=== PATIENT | female | born 1950 | race Caucasian/White ===

== ENCOUNTER → 2017-11-29 | Outpatient (CLI) | payer MEDICARE, OTHER ==
--- NOTE | 2017-11-29 16:29 | CT ---
EXAMINATION TYPE: CT abdomen pelvis wo con DATE OF EXAM: 11/29/2017 HISTORY: bladder pain per patient. Hematuria and pelvic pain per order. CT DLP: 895.9 mGycm. Automated Exposure Control for Dose Reduction was Utilized. TECHNIQUE: CT scan of the abdomen and pelvis is performed without oral or IV contrast. COMPARISON: NONE FINDINGS: Within the limitations of a non-contrast study, the following observations are made. LUNG BASES: No significant abnormality is appreciated. LIVER/GB: Liver is heterogeneously hypodense suggesting diffuse fatty infiltration. PANCREAS: No significant abnormality is seen. SPLEEN: No significant abnormality is seen. ADRENALS: No significant abnormality is seen. KIDNEYS: No renal calculus or hydronephrosis is present. No intraluminal calculus in the bladder is p resent. BOWEL: No significant abnormality is seen. GENITAL ORGANS: Heterogeneous prominent uterus likely reflects large fibroid in the lower uterine seg ment near axial image 109. Correlate clinically. Consider pelvic ultrasound confirmation. Cervical ma ss or neoplasm needs to BE excluded. This area of involvement measures 6.6 x 6.5 cm axial image 112. LYMPH NODES: No greater than 1cm abdominal or pelvic lymph nodes are appreciated. OSSEOUS STRUCTURES: There is moderate multilevel spurring in the visualized thoracolumbar spine. Ther e is prominent multilevel facet arthropathy in the lower lumbar spine OTHER: No significant additional abnormality is seen. IMPRESSION: No renal stones or hydronephrosis is seen bilaterally. There is abnormal prominence of th e lower uterine segment/possible cervix. Suspect low-lying large fibroid. Cervical mass/neoplasm not entirely excluded. Consider pelvic ultrasound to further evaluate. Correlate clinically and with Pap smear also advised if has not been recently performed.
== END | disposition home or self-care (01) ==
LOC: RADCTMAIN 12:54
PROVIDERS: ATTEND Family Medicine
DX: R31.9 Hematuria, unspecified (principal); R10.2 Pelvic and perineal pain
CPT/HCPCS: 74176

== ENCOUNTER → 2017-12-13 | Outpatient (CLI) | payer MEDICARE, OTHER ==
--- NOTE | 2017-12-13 16:03 | US ---
"EXAMINATION TYPE: US pelvis complete transvag DATE OF EXAM: 12/13/2017 COMPARISON: CT CLINICAL HISTORY: D26.0 benign neoplasm of the cervix. TECHNIQUE: Transvaginal (TV) and Transabdominal (TA) . Date of LMP: EXAM MEASUREMENTS: Uterus: 12.9 x 3.8 x 6.2 cm Endometrial Stripe: not identified Right Ovary: not identified Left Ovary: not identified 1. Uterus: Anteverted hypoechoic area cervix/CHARO that measures 7.8 x 4.9 x 6.8 cm. There is also a n irregular area endometrial multilobulated complex lesion measuring 4.4 x 2.5 x 4.3 . There is commu nication between these through the cervical os into the endometrial canal. 2. Endometrium: not identified 3. Right Ovary: not identified 4. Left Ovary: not identified 5. Bilateral Adnexa: wnl 6. Posterior cul-de-sac: no free fluid IMPRESSION: Findings concerning for hydrometrocolpos and polypoid endometrial mass highly concerning for endometrial carcinoma or endometrial polyp. Direct visualization is recommended. Cervical stenosi s and/or cervical carcinoma are also considerations giving the suspected distal obstruction. A Yellow level critical message alert has been initiated for Migdalia Hodges DO via the [employer] 36 0 | Critical Results System on 12/13/2017 4:00 PM. This message alert has been sent to Migdalia Hodges DO via the preferences provided by the clinician for the receipt of Radiology Critical Findings. Mess age ID [id number]."
== END | disposition home or self-care (01) ==
LOC: RADUSWWP 15:20
PROVIDERS: ATTEND Family Medicine
DX: D26.0 Other benign neoplasm of cervix uteri (principal)
CPT/HCPCS: 76830; 76856

== ENCOUNTER → 2018-01-05 | Outpatient (CLI) | payer MEDICARE, OTHER ==
[2018-01-05 11:45] LABS: Basophils % (A) 1 %; Eosinophils # (A) 0.1 k/uL (0-0.7); Eosinophils % (A) 2 %; HGB 14.3 gm/dL (11.4-16.0); Lymphocytes # (A) 1.4 k/uL (1.0-4.8); Lymphocytes % (A) 25 %; MCH 29.6 pg (25.0-35.0); MCHC 34.2 g/dL (31.0-37.0); MCV 86.6 fL (80.0-100.0); Mean Platelet Volume 7.2; Monocytes # (A) 0.5 k/uL (0-1.0); Monocytes % (A) 8 %; Neutrophils # (A) 3.5 k/uL (1.3-7.7); Neutrophils % (A) 62 %; Platelet Count 252 k/uL (150-450); RBC 4.84 m/uL (3.80-5.40); RDW 12.7 % (11.5-15.5); WBC 5.6 k/uL (3.8-10.6)
== END | disposition home or self-care (01) ==
LOC: LABPAT 11:01
PROVIDERS: ATTEND Obstetrics & Gynecology
DX: Z01.812 Encounter for preprocedural laboratory examination (principal); N85.7 Hematometra; I10 Essential (primary) hypertension
CPT/HCPCS: 36415; 85025

== ENCOUNTER 2018-01-10 07:22 | Day surgery (SDC) | payer MEDICARE, OTHER ==
[2018-01-06 12:05] VITALS: BMI 36.6
[~2018-01-10 07:22] MED LIST: DEXAMETHASONE SOD PHOSPHATE 10 MG/ML 1 ML VIAL IV ONE; HYDROmorphone 0.5 MG/0.5 ML SYRINGE IVP PRN; LACTATED RINGERS 1,000 ML IV SCH; LIDOCAINE 1% 20 ML VIAL (10MG/ML) FOR IV START INTRADERMA PRN; MIDAZOLAM 2 MG/2 ML VIAL IV PRN; MORPHINE SULFATE 2 MG/ML SYRINGE IV PRN; ONDANSETRON ODT 4 MG TAB PO ONE; Pre Op ABX Message 1 EACH MISC MISCELLANE ONE; SCOPOLAMINE 1.5MG/72HR PATCH TRANSDERM ONE
[2018-01-10] MEDS ORDERED: LACTATED RINGERS 1,000 ML IV ONE ×2 (07:41→09:32)
[2018-01-10] MEDS ORDERED: ePHEDrine SULFATE/0.9% NACL/PF 50 MG/5 ML SYRINGE IV ONE (08:55)
[2018-01-10] MEDS ORDERED: PROPOFOL 10 MG/ML 20 ML VIAL IV ONE (08:55)
[2018-01-10] MEDS ORDERED: KETOROLAC 30 MG/ML 1 ML VIAL ONE (08:55)
[2018-01-10] MEDS ORDERED: ceFAZolin 1,000 MG VIAL ONE (08:55)
[2018-01-10] MEDS ORDERED: MIDAZOLAM 2 MG/2 ML VIAL ONE (08:55)
[2018-01-10] MEDS ORDERED: fentaNYL (PF) 50 MCG/ML 2 ML AMP ONE (08:55)
[2018-01-10] MEDS ORDERED: LIDOCAINE 1% INJ 10MG/ML (20 ML MDV) ONE (08:55)
[2018-01-10] MEDS ORDERED: SODIUM CHLORIDE 0.9% 50 ML with ceFAZolin 2,000 MG IV ONE ×2 (09:07)
--- NOTE | 2018-01-10 09:40 | P.OP ---
Date of Procedure: 01/10/18 Preoperative Diagnosis: Pelvic pain, 16 week size uterus, hematometria Postoperative Diagnosis: Pathology pending, grade 2-3 rectocele, grade 2-3 cystocele. Cervical stenosis. Procedure(s) Performed: Suction dilatation and curettage of the uterine cavity, cervical dilation, hysteroscopy Anesthesia: TIARRA Surgeon: Jannette Obregon Ocular Care Technician #1: Awais Diaz Estimated Blood Loss (ml): 200 IV fluids (ml): 750 Urine output (ml): 200 Pathology: other (Intrauterine contents) Condition: stable Disposition: PACU Indications for Procedure: Pelvic pain, hematometria Description of Procedure: Patient is brought to the operating suite where general anesthetic is administered. She's placed in the dorsal lithotomy position. The cervix, vagina, perineal bodies are all prepped and draped in usual sterile fashion. The appropriate timeout is performed to assure proper patient procedure identification. Antibiotics are given. Examination under anesthesia reveals a large symmetric 16 week size uterus, negative adnexa bilaterally, no obvious cervix to palpation. The bladder is drained for approximately 200 mL of urine. Weighted speculum was placed, visualization was very difficult. At this point I called for the assistance of my partner Dr. Lebron to aid in visualization and identification of the anatomy. Very gentle meticulous probing is performed with a lacrimal probe, until the external cervical os is identified. It is gently and systematically dilated using Hanks and Hegar dilators. The sound was then placed in the uterine cavity sounds to 16 cm in the anteverted position. The smallest flexible sterile plastic curette is then used and under appropriate suction pressures the uterus is evacuated for a large amount of dark, endometriotic-appearing thick fluid. When this is completed, the hysteroscope was placed and the cavity is distended. No obvious polyps fibroids or tumors are visualized. The suction curet is once again placed until I am satisfied that the uterus is completely evacuated. Instrumentation is removed. The cervix is clean and dry. All sponge needle and instrument counts are correct. Patient is given Toradol. She is taken back to the recovery room in very good condition with stable vital signs including a pulse of 80, blood pressure 107/53, 99% O2 saturation. Patient will follow-up with me in the office in 2 weeks.
[2018-01-10 09:56] VITALS: TEMP 97.9
[2018-01-10 10:11] VITALS: RESP 16
[2018-01-10 10:53] VITALS: BP 145/70; PULSE 80
== END 2018-01-10 11:15 | disposition home or self-care (01) ==
LOC: OR 07:22
PROVIDERS: ATTEND Obstetrics & Gynecology
DX: N81.6 Rectocele (principal); N81.10 Cystocele, unspecified; N88.2 Stricture and stenosis of cervix uteri; K21.9 Gastro-esophageal reflux disease without esophagitis; H40.9 Unspecified glaucoma; I10 Essential (primary) hypertension; Z79.1 Long term (current) use of non-steroidal anti-inflammatories (NSAID); Z79.899 Other long term (current) drug therapy; Z88.2 Allergy status to sulfonamides
CPT/HCPCS: 88305; 58558; J2250; J1100; J0690 ×2; J2001; J3010; J1885; J2270; J2704

== ENCOUNTER → 2018-09-19 | Outpatient (CLI) | payer MEDICARE, OTHER ==
--- NOTE | 2018-09-23 08:12 | MM ---
Reason for exam: screening (asymptomatic). Last mammogram was performed 1 year and 1 month ago. History: Patient is postmenopausal. Benign excisional biopsy of the left breast, 1972. MG 3D Screening Mammo W/Cad Bilateral CC and MLO view(s) were taken. Prior study comparison: August 19, 2017, bilateral MG 3d screening mammo w/cad. July 26, 2016, bilateral MG 3d screening mammo w/cad. The breast tissue is heterogeneously dense. This may lower the sensitivity of mammography. There are benign-appearing round bilateral breast calcifications. Chronic nodularity left axillary level. No discrete abnormality. ASSESSMENT: Benign, BI-RAD 2 RECOMMENDATION: Routine screening mammogram of both breasts in 1 year.
== END | disposition home or self-care (01) ==
LOC: RADMAMWWP 11:18
PROVIDERS: ATTEND Family Medicine
DX: Z12.31 Encounter for screening mammogram for malignant neoplasm of breast (principal)
CPT/HCPCS: 77063; 77067

== ENCOUNTER → 2019-09-24 | Outpatient (CLI) | payer MEDICARE, OTHER ==
--- NOTE | 2019-09-24 11:03 | BD ---
EXAMINATION TYPE: Axial Bone Density DATE OF EXAM: 09/24/2019 COMPARISON: 08/19/2017 CLINICAL HISTORY: Z 78.0 Height: 61 IN Weight: 192 LBS RISK FACTORS HISTORY OF: Active: YES Postmenopausal woman: AGE 52 MEDICATIONS: Additional Medications: CALCIUM, VIT D, LISINOPRIL, EYE DROPS, FISH OIL, Additional History: PT HAD UTERINE CANCER WITH RADIATION IN 2018 EXAM MEASUREMENTS: Bone mineral densitometry was performed using the [email or web address] System. Bone mineral density as measured about the Lumbar spine is: ----- L1-L4(G/cm2): 1.341 T Score Values are as follows: ----- L2: 0.6 ----- L3: 0.9 ----- L4: 2.5 ----- L1-L4: 1.3 Bone mineral density has: Increased 0.4% since study of: 08/19/2017 Bone mineral density about the R hip (g/cm2): 0.967 Bone mineral density about the L hip (g/cm2): 0.990 T Score values are as follows: -----R Neck: -0.5 -----L Neck: -0.3 -----R Total: 0.7 -----L Total: 0.8 Bone mineral density has: Increased 2.6% since study of: 08/19/2017 IMPRESSION: Normal (Values between +1 and -1 indicate normal bone mass). Consider repeating this study in 5 year s or sooner if there is some new clinical indication. NOTE: T-SCORE=SD OF THE YOUNG ADULT MEAN.
--- NOTE | 2019-09-25 11:42 | MM ---
Reason for exam: screening (asymptomatic). Last mammogram was performed 1 year ago. History: Patient is postmenopausal. Benign excisional biopsy of the left breast, 1972. Physical Findings: A clinical breast exam by your physician is recommended on an annual basis and results should be correlated with mammographic findings. MG 3D Screening Mammo W/Cad Bilateral CC and MLO view(s) were taken. Prior study comparison: September 19, 2018, bilateral MG 3d screening mammo w/cad. August 19, 2017, bilateral MG 3d screening mammo w/cad. There are scattered fibroglandular densities. There is no discrete abnormality. No significant changes when compared with prior studies. ASSESSMENT: Negative, BI-RAD 1 RECOMMENDATION: Routine screening mammogram of both breasts in 1 year.
== END | disposition home or self-care (01) ==
LOC: RADMAMWWP 09:27
PROVIDERS: ATTEND Family Medicine
DX: Z12.31 Encounter for screening mammogram for malignant neoplasm of breast (principal); Z78.0 Asymptomatic menopausal state; Z13.820 Encounter for screening for osteoporosis
CPT/HCPCS: 77063; 77067; 77080

== ENCOUNTER → 2020-01-01 | Outpatient (CLI) | payer MEDICARE, OTHER ==
[2020-01-01 14:14] LABS: African American GFR (CKD) >90 (>60 ml/min/1.73 sqM); Blood Urea Nitrogen 13 mg/dL (7-17); Non-African American GFR(CKD) >90 (>60 ml/min/1.73 sqM)
--- NOTE | 2020-01-02 11:21 | CT ---
EXAMINATION TYPE: CT abdomen pelvis w con DATE OF EXAM: 01/01/2020 HISTORY: pelvic pain. Personal history of ovarian cancer. CT DLP: 1249.4mGycm Automated Exposure Control for Dose Reduction was Utilized. CONTRAST: CT scan of the abdomen and pelvis is performed with IV Contrast, patient injected with 100 mL of Isov ue 300. COMPARISON: 11/29/2017 CT and pelvic ultrasound dated 01/09/2018 FINDINGS: LUNG BASES: No significant abnormality is appreciated. LIVER/GB: The liver is diffusely heterogenous in enhancement with areas of low-attenuation that are g eographic preferentially in the right hepatic lobe. This is similar to 11/29/2017 and may represent ge ographic fatty infiltration/hepatic steatosis. This limits evaluation for hepatic masses. No right-si ded calculi in the gallbladder. PANCREAS: No significant abnormality is seen. No ductal dilatation. SPLEEN: No significant abnormality is seen. No splenomegaly. ADRENALS: No new nodular thickening. KIDNEYS: Punctate to small to accurately characterize renal lesion is seen inferior pole anterior lat erally on image 36 of the delayed series and on the right posterior laterally on image 34. These are too small to accurately characterize. Urinary bladder is incompletely distended and suboptimally eval uated. BOWEL: No dilated large or small bowel. Majority of the small bowel clustered in the left mid abdomen and pelvis however some bowel is seen in the right mid abdomen and right pelvis. No dilated bowel. N o reversal of the superior mesenteric vein or artery proximally. UTERUS/ADNEXA: Surgically absent. LYMPH NODES: No greater than 1cm abdominal or pelvic lymph nodes are appreciated. OSSEOUS STRUCTURES: Punctate probable bone island is seen of the left femoral head. Mild to moderate degenerative changes of the visualized thoracolumbar spine. OTHER: There is diastases recti and a very small fat filled periumbilical hernia. Minimal atheroscler osis of the abdominal aorta and its branches.. IMPRESSION: 1. No evidence of visceral metastasis in the abdomen or pelvis or abnormal adenopathy. 2. Geographic areas of hypoattenuation in the liver are similar to the prior of 11/29/2017 and likely on the basis of hepatic steatosis. Correlate with liver function tests.
== END | disposition home or self-care (01) ==
LOC: RADCTMAIN 13:18
PROVIDERS: ATTEND Family Medicine
DX: R10.2 Pelvic and perineal pain (principal); Z85.42 Personal history of malignant neoplasm of other parts of uterus
CPT/HCPCS: 82565; 84520; 74177; 36415; Q9967

== ENCOUNTER → 2020-11-13 | Outpatient (CLI) | payer MEDICARE, OTHER ==
--- NOTE | 2020-11-14 11:13 | MM ---
Reason for exam: screening (asymptomatic). Last mammogram was performed 1 year and 2 months ago. History: Patient is postmenopausal. Benign excisional biopsy of the left breast, 1972. Physical Findings: A clinical breast exam by your physician is recommended on an annual basis and results should be correlated with mammographic findings. MG 3D Screening Mammo W/Cad Bilateral CC and MLO view(s) were taken. Prior study comparison: September 24, 2019, bilateral MG 3d screening mammo w/cad. September 19, 2018, bilateral MG 3d screening mammo w/cad. There are scattered fibroglandular densities. There is chronic nodularity bilaterally. No significant changes when compared with prior studies. ASSESSMENT: Benign, BI-RAD 2 RECOMMENDATION: Routine screening mammogram of both breasts in 1 year.
== END ==
LOC: RADMAMWWP 14:51
PROVIDERS: ATTEND Family Medicine
DX: Z12.31 Encounter for screening mammogram for malignant neoplasm of breast (principal); Z78.0 Asymptomatic menopausal state
CPT/HCPCS: 77063; 77067

== ENCOUNTER → 2021-07-29 | Day surgery (SDC) | payer MEDICARE, OTHER ==
[2021-07-28 08:23] VITALS: BMI 34.0
[~2021-07-29] MED LIST changes: -DEXAMETHASONE SOD PHOSPHATE 10 MG/ML 1 ML VIAL IV ONE; -HYDROmorphone 0.5 MG/0.5 ML SYRINGE IVP PRN; +LIDOCAINE 1% (10MG/ML) FOR IV START INTRADERMA PRN; -LIDOCAINE 1% 20 ML VIAL (10MG/ML) FOR IV START INTRADERMA PRN; -MIDAZOLAM 2 MG/2 ML VIAL IV PRN; -MORPHINE SULFATE 2 MG/ML SYRINGE IV PRN; -ONDANSETRON ODT 4 MG TAB PO ONE; +PROPOFOL 10 MG/ML 20 ML VIAL IV ONE; -Pre Op ABX Message 1 EACH MISC MISCELLANE ONE; -SCOPOLAMINE 1.5MG/72HR PATCH TRANSDERM ONE
[2021-07-29 09:20] VITALS: TEMP 97.4
--- NOTE | 2021-07-29 09:48 | P.PCN ---
Date of Procedure: 07/29/21 Procedure(s) Performed: BRIEF HISTORY: Patient is a 71-year-old pleasant female scheduled for an elective colonoscopy as a part of screening for colorectal neoplasia. Her last colonoscopy was 10 years ago. PROCEDURE PERFORMED: Colonoscopy. PREOPERATIVE DIAGNOSIS: Screening for colon cancer. IV sedation per Anesthesia. PROCEDURE: After informed consent was obtained, the patient, was brought into the endoscopy unit. IV sedation was administered by Anesthesia under continuous monitoring. Digital rectal examination was normal. Initially the Olympus CF-160 flexible video colonoscope was then inserted in the rectum, gradually advanced into the cecum without any difficulty. Careful examination was performed as the scope was gradually being withdrawn. Ileocecal valve and the appendiceal orifice were visualized and appeared normal. Prep was excellent. Mucosa of the cecum, ascending colon, transverse colon, descending colon, sigmoid colon, and rectum appeared normal. Retroflexion was performed in the rectum and no lesions were seen. The patient tolerated the procedure well. IMPRESSION: Normal-appearing colon from rectum to cecum with no evidence of colorectal neoplasia . RECOMMENDATIONS: Findings of this examination were discussed with the patient as well as a family. She was advised to have a repeat screening colonoscopy in 10 years..
[2021-07-29 09:54] VITALS: RESP 18
[2021-07-29 10:16] VITALS: BP 115/70; PULSE 78
== END ==
LOC: ORWHC2ENDO 08:50
PROVIDERS: ATTEND Internal Medicine Gastroenterology
DX: Z12.11 Encounter for screening for malignant neoplasm of colon (principal); I10 Essential (primary) hypertension; Z85.89 Personal history of malignant neoplasm of other organs and systems; Z90.710 Acquired absence of both cervix and uterus; Z96.653 Presence of artificial knee joint, bilateral; Z90.49 Acquired absence of other specified parts of digestive tract; Z79.899 Other long term (current) drug therapy; Z88.2 Allergy status to sulfonamides
CPT/HCPCS: J2704; G0121

== ENCOUNTER → 2022-03-10 | Outpatient (CLI) | payer MEDICARE, OTHER ==
--- NOTE | 2022-03-10 16:58 | CA ---
Transthoracic Echo Report Name: Li Kitchen Age: 71 Gender: F : 1950 Exam Date: 03/10/2022 14:35 Exam Location: [facility] Ht (in): 61 Wt (lb): 180 Ordering Physician: Migdalia Hodges DO Attending/Referring Phys: Franca Rodriguez [facility] Health And Safety Advisor Tisha Joyner RDCS Procedure CPT: Indications: I10 HTN, Cardiac Hx: Technical Quality: Good Contrast 1: Total Dose (mL): Contrast 2: Total Dose (mL): MEASUREMENTS (Male / Female) Normal Values 2D ECHO LV Diastolic Diameter PLAX 2.7 cm 4.2 - 5.9 / 3.9 - 5.3 cm LV Systolic Diameter PLAX 1.1 cm IVS Diastolic Thickness 1.1 cm 0.6 - 1.0 / 0.6 - 0.9 cm LVPW Diastolic Thickness 1.2 cm 0.6 - 1.0 / 0.6 - 0.9 cm LV Relative Wall Thickness 0.9 RV Internal Dim ED PLAX 3.0 cm LA Volume 35.2 cm??? 18 - 58 / 22 - 52 cm??? M-MODE Aortic Root Diameter MM 3.3 cm LA Systolic Diameter MM 1.9 cm LA Ao Ratio MM 0.6 MV E Point Septal Separation 0.6 cm AV Cusp Separation MM 1.9 cm DOPPLER AV Peak Velocity 134.4 cm/s AV Peak Gradient 7.2 mmHg MV Area PHT 5.8 cm??? Mitral E Point Velocity 112.3 cm/s Mitral A Point Velocity 125.8 cm/s Mitral E to A Ratio 0.9 MV Deceleration Time 129.9 ms MV E' Velocity 6.9 cm/s Mitral E to MV E' Ratio 16.3 TR Peak Velocity 227.3 cm/s TR Peak Gradient 20.7 mmHg Right Ventricular Systolic Press 23.8 mmHg FINDINGS Left Ventricle Left ventricular ejection fraction is estimated at 55-60 %. Left ventricular cavity size normal. Basal septum is slightly thickened, with the rest of the heart muscle normal. Right Ventricle The right ventricle is normal in size and function. Right Atrium The right atrium is normal in size. Left Atrium The left atrium is normal in size. Mitral Valve Structurally normal mitral valve without significant stenosis or prolapse. There is trace mitral regurgitation. Aortic Valve Structurally normal aortic valve without significant sclerosis or stenosis. There is no aortic regurgitation. Tricuspid Valve Structurally normal tricuspid valve without significant stenosis. Pulmonary artery systolic pressure is normal. Trace tricuspid regurgitation. Pulmonic Valve Structurally normal pulmonic valve without significant stenosis. There is no pulmonic regurgitation. Pericardium Normal pericardium without effusion. Aorta Normal aortic root dimension. CONCLUSIONS Technically suboptimal study. LV function is normal Previewed by: Dr. Parish Mora MD (Electronically Signed) Final Date: 10 March 2022 16:57
--- NOTE | 2022-03-14 21:50 | MM ---
Reason for Exam: Screening (asymptomatic). Last mammogram was performed 1 year(s) and 3 month(s) ago. Patient History: Menarche at age 12. First Full-Term at age 20. Hysterectomy at age 49. Postmenopausal. 1973, Benign Excisional Biopsy on the left side. Risk Values: Libby 5 year model risk: 1.9%. NCI Lifetime model risk: 4.8%. Prior Study Comparison: 09/19/2018 Bilateral Screening Mammogram, [facility]. 09/24/2019 Bilateral Screening Mammogram, [facility]. 11/13/2020 Bilateral Screening Mammogram, [facility]. Tissue Density: There are scattered fibroglandular densities. Findings: Analyzed By CAD. Chronic nodularity on both sides compatible with low axillary tail lymph nodes. No significant change from prior exams. Overall Assessment: Benign, BI-RAD 2 Management: Screening Mammogram of both breasts in 1 year. 1. The patient to continue monthly breast exams. 2. A clinical breast exam by your physician is recommended on an annual basis. 3. This exam should not preclude additional follow-up of suspicious palpable abnormalities. Electronically signed and approved by: Eric Easley M.D. Radiologist
== END | disposition home or self-care (01) ==
LOC: RADMAMWWP 13:47
PROVIDERS: ATTEND Family Medicine
DX: Z12.31 Encounter for screening mammogram for malignant neoplasm of breast (principal); I08.1 Rheumatic disorders of both mitral and tricuspid valves; I10 Essential (primary) hypertension; Z78.0 Asymptomatic menopausal state
CPT/HCPCS: 77063; 77067; 93306

== ENCOUNTER → 2022-07-07 | Outpatient (CLI) | payer MEDICARE, OTHER ==
--- NOTE | 2022-07-07 16:15 | BD ---
EXAMINATION TYPE: Axial Bone Density DATE OF EXAM: 07/07/2022 COMPARISON: NONE CLINICAL HISTORY: 71 years old Female. ICD-10 CODE: Z78.0 ASYMPTOMATIC MENOPAUSAL STATE Height: 60.25 Weight: 184 FRAX RISK QUESTIONS: Alcohol (3 or more units per day): NO Family History (Parent hip fracture): NO Glucocorticoids (More than 3mos): NO (Ex: prednisone, prednisolone, methylprednisolone, dexamethasone, and hydrocortisone). History of Fracture in Adulthood: NO Secondary Osteoporosis: 3. Menopause before 45: NO Rheumatoid Arthritis: NO Current Tobacco Use: NO RISK FACTORS HISTORY OF: Family History of Osteoporosis: NO Active: YES Diet low in dairy products/other sources of calcium: NO Postmenopausal woman: YES Take estrogen and/or progesterone medications: NO MEDICATIONS: Additional Medications: NO Additional History: YES UTERINE CANCER 2008 WITH RADIATION EXAM MEASUREMENTS: Bone mineral densitometry was performed using the [employer] System. Bone mineral density as measured about the Lumbar spine is: ----- L1-L4(G/cm2): 1.328 T Score Values are as follows: ----- L1: 0.7 ----- L2: 0.6 ----- L3: 0.2 ----- L4: 2.5 ----- L1-L4: 1.2 Bone mineral density has: Decreased -1.6% since study of: 09/24/2019 Bone mineral density about the R hip (g/cm2): 0.998 Bone mineral density about the L hip (g/cm2): 0.943 T Score values are as follows: -----R Neck: -0.3 -----L Neck: -0.7 -----R Total: 0.2 -----L Total: 0.1 Bone mineral density has: Decreased -7.3% since study of: 09/24/2019 FRAX%s: The graph provided illustrates a 8% chance for a major osteoporotic fx and a 0.8% chance for the hips probability for fx in 10 years time. IMPRESSION: Normal (Values between +1 and -1 indicate normal bone mass). Consider repeating this study in 5 year s or sooner if there is some new clinical indication. NOTE: T-SCORE=SD OF THE YOUNG ADULT MEAN.
== END | disposition home or self-care (01) ==
LOC: RADBDWWP 09:19
PROVIDERS: ATTEND Family Medicine
DX: Z78.0 Asymptomatic menopausal state (principal)
CPT/HCPCS: 77080

== ENCOUNTER → 2023-03-24 | Outpatient (CLI) | payer MEDICARE, OTHER ==
--- NOTE | 2023-03-25 21:59 | MM ---
Reason for Exam: Screening (asymptomatic). Last mammogram was performed 1 year(s) and 1 month(s) ago. Patient History: Menarche at age 12. First Full-Term at age 20. Hysterectomy at age 49. Postmenopausal. Patient has history of breast feeding. 1973, Benign Excisional Biopsy on the left side. Risk Values: Libby 5 year model risk: 1.9%. NCI Lifetime model risk: 4.6%. Prior Study Comparison: 09/24/2019 Bilateral Screening Mammogram, [facility]. 11/13/2020 Bilateral Screening Mammogram, [facility]. 03/10/2022 Bilateral MG 3D screening mammo w/cad, [facility]. Tissue Density: There are scattered fibroglandular densities. Findings: Analyzed By CAD. Unchanged prominent intramammary lymph node posterior upper outer quadrant left breast and low axillary tail lymph nodes on the right. There is no suspicious group of microcalcifications or new suspicious mass in either breast. Overall Assessment: Benign, BI-RAD 2 Management: Screening Mammogram of both breasts in 1 year. . Patient should continue monthly self-breast exams. A clinical breast exam by your physician is recommended on an annual basis. This exam should not preclude additional follow-up of suspicious palpable abnormalities. Note on Libby scores and lifetime risk: 1. A Libby score greater than 3% is considered moderate risk. If this is the case, consider specialist referral to assess eligibility for a risk reducing agent. 2. If overall lifetime risk for the development of breast cancer is 20% or higher, the patient may qualify for future screening with alternating mammogram and breast MRI. Electronically signed and approved by: Eric Easley M.D. Radiologist
== END | disposition home or self-care (01) ==
LOC: RADMAMWWP 16:25
PROVIDERS: ATTEND Family Medicine
DX: Z12.31 Encounter for screening mammogram for malignant neoplasm of breast (principal); Z78.0 Asymptomatic menopausal state
CPT/HCPCS: 77063; 77067

== ENCOUNTER → 2024-03-26 | Outpatient (CLI) | payer MEDICARE, OTHER ==
--- NOTE | 2024-04-01 15:19 | MM ---
Reason for Exam: Screening (asymptomatic). Last screening mammogram was performed 12 month(s) ago. Patient History: Menarche at age 12. First Full-Term at age 20. Hysterectomy at age 49. Postmenopausal. Patient has history of breast feeding. 1973, Benign Excisional Biopsy on the left side. Risk Values: Libby 5 year model risk: 1.9%. NCI Lifetime model risk: 4.3%. Prior Study Comparison: 08/19/2017 Bilateral Screening Mammogram, [facility]. 09/19/2018 Bilateral Screening Mammogram, [facility]. 09/24/2019 Bilateral Screening Mammogram, [facility]. 11/13/2020 Bilateral Screening Mammogram, [facility]. 03/10/2022 Bilateral MG 3D screening mammo w/cad, [facility]. 03/24/2023 Bilateral MG 3D screening mammo w/cad, [facility]. Tissue Density: There are scattered areas of fibroglandular density. Findings: Analyzed By CAD. The pattern is symmetrical. No significant interval change evident. Nodularity is present. No suspicious groups of microcalcifications, spiculated or lobular masses, architectural distortion or other secondary signs of malignancy are mammographically apparent.The pattern is symmetrical. No significant interval change evident. Chronic Nodularity is present. No suspicious groups of microcalcifications, spiculated or lobular masses, architectural distortion or other secondary signs of malignancy are mammographically apparent. Overall Assessment: Benign, BI-RAD 2 Management: Screening Mammogram of both breasts in 1 year. A negative mammogram report should not preclude additional follow up of suspicious palpable abnormalities. Patient should continue monthly self breast exam. A clinical breast exam by your physician is recommended on an annual basis and results should be correlated with mammographic findings. Note on Libby scores and lifetime risk: 1. A Libby score greater than 3% is considered moderate risk. If this is the case, consider specialist referral to assess eligibility for a risk reducing agent. 2. If overall lifetime risk for the development of breast cancer is 20% or higher, the patient may qualify for future screening with alternating mammogram and breast MRI. Electronically signed and approved by: Mau Ayoub D.O. Radiologis
== END | disposition home or self-care (01) ==
LOC: RADMAMWWP 10:01
PROVIDERS: ATTEND Family Medicine
DX: Z12.31 Encounter for screening mammogram for malignant neoplasm of breast (principal); R92.323 Mammographic fibroglandular density, bilateral breasts; Z78.0 Asymptomatic menopausal state
CPT/HCPCS: 77063; 77067

== ENCOUNTER → 2025-03-27 | Outpatient (CLI) | payer MEDICARE, OTHER ==
--- NOTE | 2025-03-27 11:26 | MM ---
Reason for Exam: Screening (asymptomatic). Last screening mammogram was performed 12 month(s) ago. Patient History: Menarche at age 12. First Full-Term at age 20. Hysterectomy at age 49. Postmenopausal. Patient has history of breast feeding. 1973, Benign Excisional Biopsy on the left side. Risk Values: Libby 5 year model risk: 1.9%. NCI Lifetime model risk: 4.0%. Prior Study Comparison: 03/10/2022 Bilateral MG 3D screening mammo w/cad, [facility]. 03/24/2023 Bilateral MG 3D screening mammo w/cad, [facility]. 03/26/2024 Bilateral MG 3D screening mammo w/cad, [facility]. Tissue Density: The breasts are heterogeneously dense, which may obscure small masses. Findings: Analyzed By CAD. There is no suspicious group of microcalcifications or new suspicious mass in either breast. Overall Assessment: Benign, BI-RAD 2 Management: Screening Mammogram of both breasts in 1 year. . Patient should continue monthly self-breast exams. A clinical breast exam by your physician is recommended on an annual basis. This exam should not preclude additional follow-up of suspicious palpable abnormalities. Note on Libby scores and lifetime risk: 1. A Libby score greater than 3% is considered moderate risk. If this is the case, consider specialist referral to assess eligibility for a risk reducing agent. 2. If overall lifetime risk for the development of breast cancer is 20% or higher, the patient may qualify for future screening with alternating mammogram and breast MRI. [facility], , 03/27/2025 11:23 AM. Electronically signed and approved by: Jesus Kirby M.D. Radiologis
== END | disposition home or self-care (01) ==
LOC: RADMAMWWP 10:41
PROVIDERS: ATTEND Family Medicine
DX: Z12.31 Encounter for screening mammogram for malignant neoplasm of breast (principal); R92.333 Mammographic heterogeneous density, bilateral breasts; Z78.0 Asymptomatic menopausal state
CPT/HCPCS: 77063; 77067